=== PATIENT | female | born 1945 | race Caucasian/White ===

== ENCOUNTER 2020-06-05 21:12 | Observation (INO) | payer MEDICARE ==
[~2020-06-05] VITALS: Ht 165.1 cm; Wt 73.3 kg
--- OUTSIDE RECORDS SUMMARY | ~2020-06-05 | XMS | Encounter Summary ---
Demographics + + + | Address | [address] | | | [place] [address] | + + + | Home Phone | | + + + | Preferred Language | Unknown | + + + | Marital Status | | + + + | Christian Affiliation | Unknown | + + + | Race | White | + + + | Ethnic Group | Not or | + + + Author + + + | Author | [facility] | | | and [place] | + + + | Organization | [facility] | | | and [place] | + + + | Address | Unknown | + + + | Phone | Unavailable | + + + Support + + +---------+ + | Name | Relationship | Address | Phone | + + +---------+ + | Sergio Max | ECON | Unknown | | + + +---------+ + Care Team Providers + +------+ + | Care Mechanical Manufacturing Technician Name | Role | Phone | + +------+ + | Laquita Louis MD | PCP | | + +------+ + Reason for Referral Evaluate & Treat (Routine) + + + + + + + | Status | Reason | Specialty | Diagnoses / | Referred By | Referred To | | | | | Procedures | Contact | Contact | + + + + + + + | Authorizatio | Specialty | Cardiology | Diagnoses | [facility]erto | Liya, | | n not | Services | | | Laquita Bush, | MD Mariano | | Required | Required | | Cardiomyopat | [address] | | | | | hy, | [address] | [address] 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 | | | + + + + + + + Evaluate & Treat (Routine) + + + + + + + | Status | Reason | Specialty | Diagnoses / | Referred By | Referred To | | | | | Procedures | Contact | Contact | + + + + + + + | Authorizatio | Specialty | Surgery / | Diagnoses | Heriberto, | [facility], | | n not | Services | General | Generalized | Laquita Bush, | Devon Hernandeze, | | Required | Required | Surgery | abdominal | MD [address] | MD [address] | | | | | pain | [address] | | | | | | | [place], | | | | | | [place], | [place] [address] | | | | | | [place] [address] | Phone: | | | | | | Phone: | [phone] | | | | | | [phone] | Fax: | | | | | | Fax: | [phone] | | | | | | [phone] | | + + + + + + + Evaluate & Treat (Routine) + + + + + + + | Status | Reason | Specialty | Diagnoses / | Referred By | Referred To | | | | | Procedures | Contact | Contact | + + + + + + + | Authorizatio | Specialty | Physical | Diagnoses | [facility]erto, | [facility] | | n not | Services | Therapy | Right hip | Laquita Bush, | PHYSICAL | | Required | Required | | pain | [address] | THERAPY - | | | | | | [address] | [place] [address] | | | | | | | [address] | | | | | | [place], | [place] | | | | | | [place] [address] | [place], | | | | | | Phone: | [place] [address] | | | | | | [phone] | Phone: | | | | | | Fax: | [phone] | | | | | | [phone] | Fax: | | | | | | | [phone] | + + + + + + + Reason for Visit + + + | Reason | Comments | + + + | Establish Care | | + + + Encounter Details +--------+---------+ + + + | Date | Type | Department | Care Team | Description | +--------+---------+ + + + | 05/03/ | Office | [facility] | Laquita Louis | Establishing care | | 2020 | Visit | [facility] | MD [address] | with new doctor, | | | | [place] [facility] | [address] [place], | encounter for | | | | CARE [address] | [place] [address] | (Primary Dx); | | | | [address] [place], [place] | [phone] | Cardiomyopathy, | | | | [address] | | unspecified type | | | | [phone] | | (HCC); Atrial | | | | | | fibrillation, | | | | | | unspecified type | | | | | | (HCC); | | | | | | Gastroesophageal | | | | | | reflux disease, | | | | | | esophagitis presence | | | | | | not specified; | | | | | | Hyperlipidemia, | | | | | | unspecified | | | | | | hyperlipidemia type; | | | | | | Hx of TIA | | | | | | (transient ischemic | | | | | | attack) and stroke; | | | | | | Generalized | | | | | | abdominal pain; | | | | | | Right hip pain; | | | | | | Encounter for | | | | | | screening mammogram | | | | | | for breast cancer | +--------+---------+ + + + Social History + + + +--------+ + | Tobacco Use | Types | Packs/Day | Years | Date | | | | | Used | | + + + +--------+ + | Former Smoker | Cigarettes | 0.14 | 15 | Quit: 02/15/2020 | + + + +--------+ + + +---+---+---+ | Smokeless Tobacco: | | | | | Never Used | | | | + +---+---+---+ + + +---------+ + | Alcohol Use | Drinks/Week | oz/Week | Comments | + + +---------+ + | Not Currently | | | | + + +---------+ + + + + | Sex Assigned at | Date Recorded | | | | + + + | Not on file | | + + + documented as of this encounter Last Filed Vital Signs + + + + + | Vital Sign | Reading | Time Taken | Comments | + + + + + | Blood Pressure | 128/78 | 05/03/2020 10:10 AM | | | | | PDT | | + + + + + | Pulse | 61 | 05/03/2020 10:10 AM | | | | | PDT | | + + + + + | Temperature | 36.6 C (97.8 F) | 05/03/2020 10:10 AM | | | | | PDT | | + + + + + | Respiratory Rate | 20 | 05/03/2020 10:10 AM | | | | | PDT | | + + + + + | Oxygen Saturation | 95% | 05/03/2020 10:10 AM | | | | | PDT | | + + + + + | Inhaled Oxygen | - | - | | | Concentration | | | | + + + + + | Weight | 73.9 kg (163 lb) | 05/03/2020 10:10 AM | | | | | PDT | | + + + + + | Height | 165.1 cm (5' 5") | 05/03/2020 10:10 AM | | | | | PDT | | + + + + + | Body Mass Index | 27.12 | 05/03/2020 10:10 AM | | | | | PDT | | + + + + + documented in this encounter Patient Instructions Patient Instructions Laquita Noriega - 05/03/2020 10:05 AM PDTIt was great to see you today! Medications changed: Increase your Coreg to twice daily. Monitor your blood pressure at chrissy e and let me know if your blood pressure is going too low. I ordered labs for you to have done in the future. Do not eat anything for 12 hours prior to coming in and drink plenty of water prior to your blood draw at 8am. Images ordered: mammogram; call imaging department at the hospital to schedule and we will call you with results when they are available. Referrals placed: Physical therapy with Tristin Bruce and Dr. Dickson for EGD and Cardiology with Dr. Reyes; The referral will be authorized through your insurance and once authorized, their office will call you directly to set up an appointment time. Follow up: as needed. documented in this encounter Progress Notes Laquita Louis MD - 05/03/2020 10:05 AM PDT History: Syl Max is a 75 y.o. female Chief Complaint: Establish Care HPI Patient presents to establish care. She is a retired mental health counselor. Her daughter and grandson live in [place] which is why she and her moved here from [place]. Her daughter is Kerri Sifuentes and her grand son's name is Dario (10yr). Her daughter just bought the [employer]. She is unsure if she wi ll be taking care of grandson. She and her are very happy to be here. Complaints: SOB- Patient reports some SOB since moving here from [place]. Started about one week ago. D enies cough or cp or trouble lying flat. Walking and bending over exacerbate her SOB at time s. She also has had abd pain since her surgery (had laser treatment for ulcers and was told to stay on Protonix--4 years ago). Reports discomfort below the ribs when she bends over. Does not happen often, but often enough that it is concerning to her. She has not noticed pain w orsening in correlation with eating or not eating. Right hip: She reports her right hip will randomly pop out of place. She has been to [facility] in the past and it helps. She hasn't had any falls or injuries. She states it f eels like it is deep in the tissue, no radiation to her groin. Last mammogram: About two months ago Fhx of breast cancer- mother Fhx of colon cancer-none Surgical hx: Tonsillectomy- 1949 Joint replacement- thumbs D&C of uterus- 1996 Breast enhancement surgery- 2008 Breast biopsy- 2008 Ankle surgery Angioplasty- 2016 Ablation, cardiac- 2019 Esophageal laser- unsure what it is called, a few years ago. Family hx: Mother- asthma, breast cancer, HTN Brother- COPD Medical hx: Cardiac ablation: She has not had any heartburn since her ablation about 3-4 years ago. Afib: Patient is taking Xarelto 20mg daily, Coreg 3.125mg daily and Betapace 80mg twice demetrice ly. Cardiomyopathy: Patient is taking Cozaar 25mg daily and Lasix 20mg daily as needed She was taking the Coreg twice daily, but she was decreased to once daily a few months ago and wonde rs if she is in Afib and that is why she is more sob. Denies leg or ankle swelling. Reports she has venous stasis she had checked a few years ago and occasionally wears compression sto ckings. Hyperlipidemia: Patient is taking Lipitor 40mg nightly. States she had a recent fasting lip id about 3 months ago. H/o TIA: Patient is taking a baby ASA. She was a tobacco smoker, but quit many years ago. Patient Active Problem List Diagnosis MVP (mitral valve prolapse) Hyperlipidemia Hx of TIA (transient ischemic attack) and stroke Heart murmur GERD (gastroesophageal reflux disease) Ejection fraction < 50% Cardiomyopathy CAD (coronary artery disease) A-fib Current Outpatient Medications: aspirin 81 mg chewable tablet, Chew and swallow 81 mg Daily., Disp: , Rfl: atorvaSTATin (LIPITOR) 40 mg tablet, Take 40 mg by mouth nightly., Disp: , Rfl: carvedilol (COREG) 3.125 mg tablet, Take 3.125 mg by mouth 2 times daily (with breakfa st & dinner)., Disp: , Rfl: furosemide (LASIX) 20 mg tablet, Take 20 mg by mouth 2 times daily As needed ., Disp: , Rfl: LORazepam (ATIVAN) 0.5 mg tablet, Take 1 tablet by mouth nightly as needed for Anxiety or Insomnia., Disp: 20 tablet, Rfl: 0 pantoprazole (PROTONIX) 40 mg tablet, Take 40 mg by mouth every morning (before breakf ast)., Disp: , Rfl: rivaroxaban (XARELTO) 20 mg tablet, Take 20 mg by mouth Daily (with dinner)., Disp: , Rfl: sotalol (BETAPACE) 80 mg tablet, Take 80 mg by mouth 2 times daily., Disp: , Rfl: valACYclovir (VALTREX) 500 mg tablet, Take 500 mg by mouth 2 times daily., Disp: , Rfl : Review of Systems Constitutional: Negative for chills and fever. HENT: Negative for congestion. Respiratory: Positive for shortness of breath (as per hpi). Negative for cough. Cardiovascular: Negative for chest pain and leg swelling. Gastrointestinal: Positive for abdominal pain (per hpi). Negative for nausea and vomiting. Musculoskeletal: Positive for myalgias (R hip per hpi). Neurological: Negative for dizziness, weakness and light-headedness. Psychiatric/Behavioral: Negative for dysphoric mood. Results for orders placed or performed in visit on 05/01/20 External Lab: Creatinine Result Value Ref Range Creatinine, External 0.7 External Lab: CBC Result Value Ref Range WBC, External 7.1 HGB, External 11.6 HCT, External 35.6 PLT, External 156 RBC, External 3.90 MCV, External 91 External Lab: Sodium Result Value Ref Range Sodium, External 138 External Lab: Potassium Result Value Ref Range Potassium, External 3.9 External Lab: Chloride Result Value Ref Range Chloride, External 106 External Lab: Carbon Dioxide Result Value Ref Range Carbon Dioxide, External 27 External Lab: Calcium Result Value Ref Range Calcium, External 8.6 External Lab: Albumin Result Value Ref Range Albumin, External 2.9 External Lab: AST Result Value Ref Range AST, External 22 External Lab: ALT Result Value Ref Range ALT, External 18 External Lab: Glucose Result Value Ref Range Glucose, External 86 External Lab: BUN Result Value Ref Range BUN, External 16 Physical Examination: BP 128/78 | Pulse 61 | Temp 36.6 C (97.8 F) | Resp 20 | Ht 1.651 m (5' 5") | Wt 73 .9 kg (163 lb) | SpO2 95% | BMI 27.12 kg/m Physical Exam Constitutional: She is oriented to person, place, and time. She appears well-developed and well-nourished. No distress. HENT: Head: Normocephalic and atraumatic. Eyes: Pupils are equal, round, and reactive to light. Conjunctivae are normal. Cardiovascular: Normal rate. Irreg, irreg, rate controlled Pulmonary/Chest: Effort normal and breath sounds normal. No respiratory distress. She has n o wheezes. She has no rales. Abdominal: Soft. Bowel sounds are normal. She exhibits no distension. There is no abdominal tenderness. There is no rebound and no guarding. Musculoskeletal: General: No edema. Neurological: She is alert and oriented to person, place, and time. Skin: Skin is warm and dry. Psychiatric: She has a normal mood and affect. Her behavior is normal. Thought content norm al. Assessment/Plan: 1. Establishing care with new doctor, encounter for - Reviewed medical, surgical, and family history. Reviewed current medications and diagnose s. - Follow up as needed this spring for wellness exam. 2. Cardiomyopathy, unspecified type (HCC) - Continue taking Cozaar 25mg daily and Lasix 20mg daily and will increase Coreg to 3.125mg BID for her Afib as well as Betapace 80mg BID and she will f/u if sob is not improving or w orsening and will get an echo. Will refer her to Dr. Reyes. - Comprehensive Metabolic Panel; Future - CBC no Differential; Future - * [facility] - AMB REFERRAL 3. Atrial fibrillation, unspecified type (HCC) - Continue taking Xarelto 20mg daily and will increase Coreg to 3.125mg BID as well and she will be referred to Dr. Reyes for continuity of care. - * [facility] - AMB REFERRAL 4. Gastroesophageal reflux disease, esophagitis presence not specified - Continue taking Protonix 40mg daily and will refer to Dr. Dickson for repeat EGD due to her abd pain for further recommendations. 5. Hyperlipidemia, unspecified hyperlipidemia type - Continue taking Lipitor 40mg nightly and will plan to repeat fasting labs this spring. - Lipid Profile; Future 6. Hx of TIA (transient ischemic attack) and stroke - Continue taking baby ASA. - Comprehensive Metabolic Panel; Future - CBC no Differential; Future 7. Generalized abdominal pain - Referral to [facility] for EGD. - Ref Surgery- [facility] 8. R hip pain - Referral to Tristin Bruce for deep tissue massage. - Ambulatory referral to Physical Therapy 9. Encounter for screening mammogram for breast cancer - [facility] Tomosynthesis Screening Bilateral; Future The documentation for this encounter was entered by Laquita Noriega, Certified Nail Feeder , and accurately and completely reflects the service(s) I personally performed and the decis ions made by myself, Laquita Louis MD at this date and time of service.Electronically dawson d by Laquita Louis MD at 05/03/2020 11:55 AM PDTdocumented in this encounter Plan of Treatment +--------+ + + + + | Date | Type | Specialty | Care Team | Description | +--------+ + + + + | 06/06/ | Office | Cardiology | Mariano Nickerson, | | 2019 | Visit | | [address] | | | | | | [place], | | | | | | [place] [address] | | | | | | [phone] | | | | | | | | +--------+ + + + + | 06/25/ | Hospital | | Devon Dickson | | | 2019 | Encounter | | MD [address] | | | | | [address] | | | | | | [place], [place] | | | | | | [address] | | | | | | [phone] | | | | | | | | +--------+ + + + + | 06/25/ | Surgery | | Devon Dickson | EGD W/ BIOPSY | | 2019 | | | MD [address] | | | | | | [address] | | | | | | [place], [place] | | | | | | [address] | | | | | | [phone] | | | | | | | | +--------+ + + + + | 07/04/ | Office | General Surgery | Devon Dickson | | | 2019 | Visit | | MD [address] | | | | | | [address] | | | | | | [place], [place] | | | | | | [address] | | | | | | [phone] | | | | | | | | +--------+ + + + + + +---------+--------+ + + | Name | Type | Priori | Associated Diagnoses | Order Schedule | | | | ty | | | + +---------+--------+ + + | Lipid Profile | Lab | Routin | Hyperlipidemia, | 1 Occurrences | | | | e | unspecified | starting 05/03/2020 | | | | | hyperlipidemia type | until 05/03/2021 | + +---------+--------+ + + | Comprehensive | Lab | Routin | Cardiomyopathy, | 1 Occurrences | | Metabolic Panel | | e | unspecified type | starting 05/03/2020 | | | | | (HCC) Hx of TIA | until 05/03/2021 | | | | | (transient ischemic | | | | | | attack) and stroke | | + +---------+--------+ + + | CBC no Differential | Lab | Routin | Cardiomyopathy, | 1 Occurrences | | | | e | unspecified type | starting 05/03/2020 | | | | | (HCC) Hx of TIA | until 05/03/2021 | | | | | (transient ischemic | | | | | | attack) and stroke | | + +---------+--------+ + + | [facility] | Imaging | Routin | Encounter for | Expected: | | Screening Bilateral | | e | screening mammogram | 05/03/2020, Expires: | | | | | for breast cancer | 07/03/2021 | + +---------+--------+ + + + + +--------+ + + | Name | Type | Priori | Associated Diagnoses | Order Schedule | | | | ty | | | + + +--------+ + + | Ambulatory referral | Outpatient | Routin | Right hip pain | Ordered: 05/03/2020 | | to Physical Therapy | Referral | e | | | + + +--------+ + + | Ref Surgery- [facility] | Outpatient | Routin | Generalized | Ordered: 05/03/2020 | | | Referral | e | abdominal pain | | + + +--------+ + + | * [facility] | Outpatient | Routin | Cardiomyopathy, | Ordered: 05/03/2020 | | CARDIOLOGY - AMB | Referral | e | unspecified type | | | REFERRAL | | | (HCC) Atrial | | | | | | fibrillation, | | | | | | unspecified type | | | | | | (HCC) | | + + +--------+ + + documented as of this encounter Visit Diagnoses + + | Diagnosis | + + | Establishing care with new doctor, encounter for - Primary | + + | Cardiomyopathy, unspecified type (HCC) | + + | Atrial fibrillation, unspecified type (HCC) | + + | Gastroesophageal reflux disease, esophagitis presence not specified | + + | Hyperlipidemia, unspecified hyperlipidemia type | + + | Hx of TIA (transient ischemic attack) and stroke Transient ischemic attack (TIA), and | | cerebral infarction without residual deficits | + + | Generalized abdominal pain Abdominal pain, generalized | + + | Right hip pain Pain in joint, pelvic region and thigh | + + | Encounter for screening mammogram for breast cancer | + + | Coronary artery disease, angina presence unspecified, unspecified vessel or lesion | | type, unspecified whether soboba or transplanted heart - Primary | + + | Atrial fibrillation, unspecified type (HCC) | + + | Encounter for loop recorder check | + + | Status post placement of implantable loop recorder | + + documented in this encounter
--- OUTSIDE RECORDS SUMMARY | ~2020-06-05 | XMS | Encounter Summary ---
Demographics + + + | Address | [address] | | | [place] [address] | + + + | Home Phone | | + + + | Preferred Language | Unknown | + + + | Marital Status | | + + + | Jain Affiliation | Unknown | + + + | Race | White | + + + | Ethnic Group | Not or | + + + Author + + + | Author | [facility] | | | and [place] | + + + | Organization | [facility] | | | and [...] Team Providers + +------+ + | Care Philosophy Faculty Name | Role | Phone | + +------+ + | Laquita Louis MD | PCP | | + +------+ + Reason for Visit +--------+ + | Reason | Comments | +--------+ + | Other | LLQ PAIN | +--------+ + Encounter Details +--------+---------+ + + + | Date | Type | Department | Care Team | Description | +--------+---------+ + + + | 05/20/ | Office | [facility] | Devon Dickson | Polyp of colon, | | 2019 | Visit | [facility] | [address] | unspecified part of | | | | [place] [facility] | [address] | colon, unspecified | | | | [facility] [address] | [place], [place] | type (Primary Dx); | | | | [address] [place], [place] | [address] | Kohler's esophagus | | | | [address] | [phone] | without dysplasia | | | | [phone] | | | +--------+---------+ + + + Social History [...] + + + | Blood Pressure | 118/72 | 05/20/2020 9:53 AM | | | | | PDT | | + + + + + | Pulse | 60 | 05/20/2020 9:53 AM | | | | | PDT | | + + + + + | Temperature | 37.3 C (99.2 F) | 05/20/2020 9:53 AM | | | | | PDT | | + + + + + | Respiratory Rate | - | - | | + + + + + | Oxygen Saturation | 97% | 05/20/2020 9:53 AM | | | | | PDT | | + + + + + | Inhaled Oxygen | - | - | | | Concentration | | | | + + + + + | Weight | 72.6 kg (160 lb) | 05/20/2020 9:53 AM | | | | | PDT | | + + + + + | Height | - | - | | + + + + + | Body Mass Index | 26.63 | 05/03/2020 10:10 AM | | | | | PDT | | + + + + + documented in this encounter Progress Notes Devon Dickson MD - 05/20/2020 9:45 AM PDT Subjective: Referring provider: [facility] Consulting provider: Dr. Yessi Streeter Danya Max is a 75 y.o. female with history of having had Kohler's esophagus with laser treatment about 5-6 years ago. She has not had any f/u EGD since then, but has been on Pantoprazole. We need to do a f/u EGD to monitor her Kohler's. She has also had some L UQ pain, possibly related to PUD or colon issues. Her last colonoscopy was about 6 years ago also, with a h/o some polyps, not sure what kind . She denies a family h/o colon cancer. She has had changes in bowel habits with looser st ools then normal. Therefore, a colonoscopy is indicated. She had a Cologuard about a year ago which was negative. Past Medical History: Diagnosis Date A-fib (HCC) Alcoholic (HCC) 2203-8047 CAD (coronary artery disease) 2015 with ptca/stenting Cardiomyopathy (HCC) Ejection fraction < 50% 08/11/2016 37% GERD (gastroesophageal reflux disease) Heart murmur Herpes simplex Genital Hx of TIA (transient ischemic attack) and stroke Hyperlipidemia MVP (mitral valve prolapse) Past Surgical History: Procedure Laterality Date ABLATION 06/14/2019 Cardiac ANGIOPLASTY 08/11/2016 ANKLE SURGERY breast biopsy 2009 BREAST ENHANCEMENT SURGERY 1988 DILATION AND CURETTAGE OF UTERUS 1997 JOINT REPLACEMENT thumbs TONSILLECTOMY 1950 Current Outpatient Medications Medication Sig Dispense Refill aspirin 81 mg chewable tablet Chew and swallow 81 mg Daily. atorvaSTATin (LIPITOR) 40 mg tablet Take 40 mg by mouth nightly. carvedilol (COREG) 3.125 mg tablet Take 3.125 mg by mouth 2 times daily (with breakfast & dinner). furosemide (LASIX) 20 mg tablet Take 20 mg by mouth 2 times daily As needed . LORazepam (ATIVAN) 0.5 mg tablet Take 1 tablet by mouth nightly as needed for Anxiety o r Insomnia. 20 tablet 0 losartan (COZAAR) 25 mg tablet Take 1 tablet by mouth Daily. 30 tablet pantoprazole (PROTONIX) 40 mg tablet Take 40 mg by mouth every morning (before breakfas t). rivaroxaban (XARELTO) 20 mg tablet Take 20 mg by mouth Daily (with dinner). sotalol (BETAPACE) 80 mg tablet Take 80 mg by mouth 2 times daily. valACYclovir (VALTREX) 500 mg tablet Take 500 mg by mouth 2 times daily. No current facility-administered medications for this visit. Allergies Allergen Reactions Lisinopril Shortness Of Breath Brilinta [Ticagrelor] Unknown Social History Socioeconomic History Marital status: Spouse name: Not on file Number of children: Not on file Years of education: Not on file Highest education level: Not on file Occupational History Not on file Social Needs Financial resource strain: Not on file Food insecurity Worry: Not on file Inability: Not on file Transportation needs Medical: Not on file Non-medical: Not on file Tobacco Use Smoking status: Former Smoker Packs/day: 0.14 Years: 15.00 Pack years: 2.10 Types: Cigarettes Quit date: 02/15/2020 Years since quittin.2 Smokeless tobacco: Never Used Substance and Sexual Activity Alcohol use: Not Currently Drug use: Never Sexual activity: Yes Lifestyle Physical activity Days per week: Not on file Minutes per session: Not on file Stress: Not on file Relationships Social connections Talks on phone: Not on file Gets together: Not on file Attends restorationist service: Not on file Active member of club or organization: Not on file Attends meetings of clubs or organizations: Not on file Relationship status: Not on file Intimate partner violence Fear of current or ex partner: Not on file Emotionally abused: Not on file Physically abused: Not on file Forced sexual activity: Not on file Other Topics Concern Not on file Social History Narrative Not on file Family History Problem Relation Age of Onset Asthma Mother Breast cancer Mother Hypertension Mother COPD Brother Review of Systems: Review of Systems Change in bowel habits, h/o LUQ pain, otherwise, The 10 point ROS completed and noncontribu tory other than listed in pertinent history. Objective: BP 118/72 | Pulse 60 | Temp 37.3 C (99.2 F) (Oral) | Wt 72.6 kg (160 lb) | SpO2 97% | BMI 26.63 kg/m Constitutional: Alert and oriented and appropriate in no acute distress Pupils: Equal and round with no icterus Neck: Supple with no carotid bruits or lymphadenopathy or thyroid enlargement Pulmonary/Chest: Clear bilateral with no wheezing Cardiovascular: Regular rate and rhythm with no murmurs Abdominal: Nonobese abdomen with no tenderness, or masses or hernias Extremities: No edema or ischemic changes. Diagnostic Data: Laboratory studies were personally reviewed by me. Chemistry: No results for input(s): NA, K, CHLORIDE, CO2, BUN, CREA, GLU, BILITOT, AST, ALT , ALKPHOS in the last 72 hours. Hematology:No results for input(s): HGB, HCT, WBC, PLT, NEUPCT in the last 72 hours. Assessment: H/o Kohler's, s/p laser treatment and needs f/u EGD. Also, h/o colon polyps with the last colonoscopy 6 years ago, and positive changes in bowel habits. Plan: For an EGD and colonoscopy. Pt. To stop Xarelto 24 hours before the procedure. Electronically Signed by: Devon Dickson MD, 05/20/2020 10:09 AM PDT Portions of this chart may have been created with [employer] voice recognition software. Occasi onal wrong-word or sound-alike substitutions may have occurred due to the inherent moe itations of voice recognition software. Please read the chart carefully and recognize, using context, where these substitutions have occurred. documented in this encounter Plan of Treatment +--------+ + + + + | Date | Type | Specialty | Care Team | Description | +--------+ + + + + | 06/06/ | Office | Cardiology | Mariano Nickerson, | | | 2019 | Visit | | MD [address] | | | | | | [place], | | | | | | [place] [address] | | | | | | [phone] | | | | | | | | +--------+ + + + + | 06/25/ | Hospital | | Devon iDckson | | | 2019 | Encounter | | [address] | | | | | | [address] | | | | | | [place], [place] | | | | | | [address] | | | | | | [phone] | | | | | | | | +--------+ + + + + | 06/25/ | Surgery | | Devon Dickson | EGD W/ BIOPSY | | 2019 | | | [address] | | | | | | [address] | | | | | | [place], [place] | | | | | | [address] | | | | | | [phone] | | | | | | | | +--------+ + + + + | 07/04/ | Office | General Surgery | Devon Dickson | | | 2019 | Visit | | [address] | | | | | | [address] | | | | | | [place], [place] | | | | | | [address] | | | | | | [phone] | | | | | | | | +--------+ + + + + documented as of this encounter Visit Diagnoses + + | Diagnosis | + + | Polyp of colon, unspecified part of colon, unspecified type - Primary | + + | Kohler's esophagus without dysplasia Kohler's esophagus | + + | Coronary artery disease, angina presence unspecified, unspecified vessel or lesion | | type, unspecified whether [place] or transplanted heart - Primary | + + | Atrial fibrillation, unspecified type (HCC) | + + | Encounter for loop recorder check | + + | Status post placement of implantable loop recorder | + + documented in this encounter"
--- OUTSIDE RECORDS SUMMARY | ~2020-06-05 | XMS | Encounter Summary ---
Demographics + + + | Address | [address] | | | [place] [address] | + + + | Home Phone | | + + + | Preferred Language | Unknown | + + + | Marital Status | | + + + | Denominational Affiliation | Unknown | + + + | Race | White | + + + | Ethnic Group | Not or | + + + Author + + + | Author | [facility] | | | and [place] | + + + | Organization | [facility] | | | and [...] Team Providers + +------+ + | Care Skip Hoist Operator Name | Role | Phone | + +------+ + PCP | Unavailable | + +------+ + Encounter Details +--------+ + + + + | Date | Type | Department | Care Team | Description | +--------+ + + + + | 05/01/ | Abstract | [facility] | Laquita Louis | | | 2020 | | [facility] | [address] | | | | | [place] [facility] | [address] [place] | | | | | [address] | [place] [address] | | | | | [address] [place], [place] | [phone] | | | | | [address] | | | | | | [phone] | | | +--------+ + + + + Social History + + [...] + + documented as of this encounter Plan of Treatment +--------+ + + + + | Date | Type | Specialty | Care Team | Description | +--------+ + + + + | 06/06/ | Office | Cardiology | Mariano Nickerson, | | | 2019 | Visit | | [address] | | | | | | [place], | | | | | | [place] [address] | | | | | | [phone] | | | | | | | | +--------+ + + + + | 06/25/ | Hospital | | Devon Dickson | | | 2019 | Encounter | | [address] | | | | | [address] | | | | | | [place], [place] | | | | | | [address] | | | | | | [phone] | | | | | | | | +--------+ + + + + | 06/25/ | Surgery | | Devon Dickson | EGD W/ BIOPSY | | 2019 | | | [address] | | | | | | [address] | | | | | | [place], [place] | | | | | | [address] | | | | | | [phone] | | | | | | | | +--------+ + + + + | 07/04/ | Office | General Surgery | Devon Dickson | | | 2019 | Visit | | [address] | | | | | [address] | | | | | | [place], [place] | | | | | | [address] | | | | | | [phone] | | | | | | | | +--------+ + + + + documented as of this encounter Procedures + +--------+ + + + | Procedure Name | Priori | Date/Time | Associated Diagnosis | Comments | | | ty | | | | + +--------+ + + + | EXTERNAL LAB: BUN | Routin | 06/15/2019 | | Results for this | | | e | | | procedure are in the | | | | | | results section. | + +--------+ + + + | EXTERNAL LAB: | Routin | 06/15/2019 | | Results for this | | GLUCOSE | e | | | procedure are in the | | | | | | results section. | + +--------+ + + + | EXTERNAL LAB: ALT | Routin | 06/15/2019 | | Results for this | | | e | | | procedure are in the | | | | | | results section. | + +--------+ + + + | EXTERNAL LAB: AST | Routin | 06/15/2019 | | Results for this | | | e | | | procedure are in the | | | | | | results section. | + +--------+ + + + | EXTERNAL LAB: | Routin | 06/15/2019 | | Results for this | | ALBUMIN | e | | | procedure are in the | | | | | | results section. | + +--------+ + + + | EXTERNAL LAB: | Routin | 06/15/2019 | | Results for this | | CALCIUM | e | | | procedure are in the | | | | | | results section. | + +--------+ + + + | EXTERNAL LAB: CARBON | Routin | 06/15/2019 | | Results for this | | DIOXIDE | e | | | procedure are in the | | | | | | results section. | + +--------+ + + + | EXTERNAL LAB: | Routin | 06/15/2019 | | Results for this | | CHLORIDE | e | | | procedure are in the | | | | | | results section. | + +--------+ + + + | EXTERNAL LAB: | Routin | 06/15/2019 | | Results for this | | POTASSIUM | e | | | procedure are in the | | | | | | results section. | + +--------+ + + + | EXTERNAL LAB: SODIUM | Routin | 06/15/2019 | | Results for this | | | e | | | procedure are in the | | | | | | results section. | + +--------+ + + + | EXTERNAL LAB: CBC | Routin | 06/15/2019 | | Results for this | | | e | | | procedure are in the | | | | | | results section. | + +--------+ + + + | EXTERNAL LAB: | Routin | 06/15/2019 | | Results for this | | CREATININE | e | | | procedure are in the | | | | | | results section. | + +--------+ + + + documented in this encounter Results External Lab: IVETTE (06/15/2019) + +-------+ + + + | Component | Value | Ref Range | Performed | Pathologist | | | | | At | Signature | + +-------+ + + + | BUN, | 16 | | | | | External | | | | | + +-------+ + + + External Lab: Glucose (06/15/2019) + +-------+ + + + | Component | Value | Ref Range | Performed | Pathologist | | | | | At | Signature | + +-------+ + + + | Glucose, | 86 | | | | | External | | | | | + +-------+ + + + External Lab: ALT (06/15/2019) + +-------+ + + + | Component | Value | Ref Range | Performed | Pathologist | | | | | At | Signature | + +-------+ + + + | ALT, | 18 | | | | | External | | | | | + +-------+ + + + External Lab: AST (06/15/2019) + +-------+ + + + | Component | Value | Ref Range | Performed | Pathologist | | | | | At | Signature | + +-------+ + + + | AST, | 22 | | | | | External | | | | | + +-------+ + + + External Lab: Albumin (06/15/2019) + +-------+ + + + | Component | Value | Ref Range | Performed | Pathologist | | | | | At | Signature | + +-------+ + + + | Albumin, | 2.9 | | | | | External | | | | | + +-------+ + + + External Lab: Calcium (06/15/2019) + +-------+ + + + | Component | Value | Ref Range | Performed | Pathologist | | | | | At | Signature | + +-------+ + + + | Calcium, | 8.6 | | | | | External | | | | | + +-------+ + + + External Lab: Carbon Dioxide (06/15/2019) + +-------+ + + + | Component | Value | Ref Range | Performed | Pathologist | | | | | At | Signature | + +-------+ + + + | Carbon | 27 | | | | | Dioxide, | | | | | | External | | | | | + +-------+ + + + External Lab: Chloride (06/15/2019) + +-------+ + + + | Component | Value | Ref Range | Performed | Pathologist | | | | | At | Signature | + +-------+ + + + | Chloride, | 106 | | | | | External | | | | | + +-------+ + + + External Lab: Potassium (06/15/2019) + +-------+ + + + | Component | Value | Ref Range | Performed | Pathologist | | | | | At | Signature | + +-------+ + + + | Potassium, | 3.9 | | | | | External | | | | | + +-------+ + + + External Lab: Sodium (06/15/2019) + +-------+ + + + | Component | Value | Ref Range | Performed | Pathologist | | | | | At | Signature | + +-------+ + + + | Sodium, | 138 | | | | | External | | | | | + +-------+ + + + External Lab: CBC (06/15/2019) + +-------+ + + + | Component | Value | Ref Range | Performed | Pathologist | | | | | At | Signature | + +-------+ + + + | WBC, | 7.1 | | | | | External | | | | | + +-------+ + + + | HGB, | 11.6 | | | | | External | | | | | + +-------+ + + + | HCT, | 35.6 | | | | | External | | | | | + +-------+ + + + | PLT, | 156 | | | | | External | | | | | + +-------+ + + + | RBC, | 3.90 | | | | | External | | | | | + +-------+ + + + | MCV, | 91 | | | | | External | | | | | + +-------+ + + + External Lab: Creatinine (06/15/2019) + +-------+ + + + | Component | Value | Ref Range | Performed | Pathologist | | | | | At | Signature | + +-------+ + + + | Creatinine, | 0.7 | | | | | External | | | | | + +-------+ + + + + + | Specimen | + + | Blood | + + documented in this encounter Visit Diagnoses Not on filedocumented in this encounter"
--- OUTSIDE RECORDS SUMMARY | ~2020-06-05 | XMS | Clinical Summary ---
Demographics + + + | Address | [address] | | | [place] [address] | + + + | Home Phone | | + + + | Preferred Language | Unknown | + + + | Marital Status | | + + + | Yazidi Affiliation | Unknown | + + + | Race | White | + + + | Ethnic Group | Not or | + + + Author + + + | Author | [facility] | | | and [place] | + + + | Organization | [facility] | | | and [...] Team Providers + +------+ + | Care Cake Press Operator Name | Role | Phone | + +------+ + | Laquita Louis MD | PCP | | + +------+ + Allergies + + + + + + | Active Allergy | Reactions | Severity | Noted | Comments | | | | | Date | | + + + + + + | Ticagrelor | Unknown | | 04/30/20 | | | | | | 20 | | + + + + + + | Lisinopril | Shortness Of Breath | High | 04/30/20 | | | | | | 20 | | + + + + + + Medications + + + +---------+------+------+-------+ | Medication | Sig | Dispensed | Refills | Star | End | Statu | | | | | | t | Date | s | | | | | | Date | | | + + + +---------+------+------+-------+ | rivaroxaban | Take 20 mg by mouth | | 0 | | | Activ | | (XARELTO) 20 mg | Daily (with dinner). | | | | | e | | tablet | | | | | | | + + + +---------+------+------+-------+ | pantoprazole | Take 40 mg by mouth | | 0 | | | Activ | | (PROTONIX) 40 mg | every morning | | | | | e | | tablet | (before breakfast). | | | | | | + + + +---------+------+------+-------+ | sotalol (BETAPACE) | Take 80 mg by mouth | | 0 | | | Activ | | 80 mg tablet | 2 times daily. | | | | | e | + + + +---------+------+------+-------+ | carvedilol (COREG) | Take 3.125 mg by | | 0 | | | Activ | | 3.125 mg tablet | mouth 2 times daily | | | | | e | | | (with breakfast & | | | | | | | | dinner). | | | | | | + + + +---------+------+------+-------+ | atorvaSTATin | Take 40 mg by mouth | | 0 | | | Activ | | (LIPITOR) 40 mg | nightly. | | | | | e | | tablet | | | | | | | + + + +---------+------+------+-------+ | valACYclovir | Take 500 mg by mouth | | 0 | | | Activ | | (VALTREX) 500 mg | 2 times daily. | | | | | e | | tablet | | | | | | | + + + +---------+------+------+-------+ | aspirin 81 mg | Chew and swallow 81 | | 0 | | | Activ | | chewable tablet | mg Daily. | | | | | e | + + + +---------+------+------+-------+ | furosemide (LASIX) | Take 20 mg by mouth | | 0 | | | Activ | | 20 mg tablet | 2 times daily As | | | | | e | | | needed . | | | | | | + + + +---------+------+------+-------+ | LORazepam (ATIVAN) | Take 1 tablet by | 20 | 0 | 08/1 | | Activ | | 0.5 mg tablet | mouth nightly as | tablet | | 4/20 | | e | | | needed for Anxiety | | | 20 | | | | | or Insomnia. | | | | | | + + + +---------+------+------+-------+ | losartan (COZAAR) | Take 1 tablet by | 30 | 0 | 08/ | | Activ | | 25 mg tablet | mouth Daily. | tablet | | 01/07 | | e | | | | | | 20 | | | + + + +---------+------+------+-------+ Active Problems + + + | Problem | Noted Date | + + + | Encounter for loop recorder check | 06/05/2020 | + + + | Status post placement of implantable loop recorder | 06/05/2020 | + + + + + | Overview: Indication: | + + + + + | Ejection fraction < 50% | 08/11/2016 | + + + + + | Overview: 37% | + + + + + | CAD (coronary artery disease) | 09/20/2015 | + + + + + | Overview: with ptca/stenting | + + + +---+ | MVP (mitral valve prolapse) | | + +---+ | Hyperlipidemia | | + +---+ | Hx of TIA (transient ischemic attack) and stroke | | + +---+ | Heart murmur | | + +---+ | GERD (gastroesophageal reflux disease) | | + +---+ | Cardiomyopathy | | + +---+ | A-fib | | + +---+ + + | Overview: S/P atrial fibrillation ablation and loop recorder | | implantation 06/14/2019 | + + Encounters +--------+ + + + + | Date | Type | Specialty | Care Team | Description | +--------+ + + + + | 05/20/ | Office | General Surgery | Devon Dickson | Polyp of colon, | | 2019 | Visit | | [facility] | unspecified part of | | | | | | colon, unspecified | | | | | | type (Primary Dx); | | | | | | 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 | +--------+ + + + + | 05/03/ | Office | Primary Care | Laquita Louis | Establishing care | | 2019 | Visit | | [facility] | with new doctor, | | | | | | encounter for | | | | | | (Primary Dx); | | | | | | Cardiomyopathy, | | | | | | unspecified type | | | | | | (HCC); Atrial | | | [...] | | | for breast cancer | +--------+ + + + + | 05/01/ | Abstract | Primary Care | Laquita Louis | | | 2020 | | | [facility] | | +--------+ + + + + from Last 3 Months Family History + + +------+ + | Medical History | Relation | Name | Comments | + + +------+ + | COPD | Brother | | | + + +------+ + | Asthma | Mother | | | + + +------+ + | Breast cancer | Mother | | | + + +------+ + | Hypertension | Mother | | | + + +------+ + + +------+--------+ + | Relation | Name | Status | Comments | + +------+--------+ + | Brother | | | | + +------+--------+ + | Mother | | | | + +------+--------+ + Social History + + + +--------+ [...] on file | | + + + Last Filed Vital Signs + + + [...] | | + + + + + Plan of Treatment +--------+ + + + + | Date | Type | Specialty | Care Team | Description | +--------+ + + + + | 06/06/ | Office | Cardiology | Mariano Nickerson, | | | 2019 | Visit | | MD Eleazar Mueller | | | | | | [place], | | | | | | [place] [address] | | | | | | [phone] | | | | | | | | +--------+ + + + + | 06/25/ | Hospital | | Devon Dickson | | | 2019 | Encounter | | [facility] [address] | | | | | | [place], [place] | | | | | | [address] | | | | | | [phone] | | | | | | | | +--------+ + + + + | 06/25/ | Surgery | | Devon Dickson | EGD W/ BIOPSY | | 2019 | | | MD [facility] | [address] | | | | | | [place], [place] | | | | | | [address] | | | | | | [phone] | | | | | | | | +--------+ + + + + | 07/04/ | Office | General Surgery | Devon Dickson | | | 2019 | Visit | | MD [facility] | [address] | | | [address] | | | | | | [place], [place] | | | | | | [address] | | | | | | [phone] | | | | | | | | +--------+ + + + + + + + + + | Health Maintenance | Due Date | Last | Comments | | | | Done | | + + + + + | Hepatitis C | | | | | Screening | 3 | | | + + + + + | Med Mgmt: ECG | | | | | | 3 | | | + + + + + | Medication | | | | | Management | 3 | | | + + + + + | Vaccine: | | | | | Dtap/Tdap/Td (1 - | 2 | | | | Tdap) | | | | + + + + + | Vaccine: Zoster (1 | | | | | of 2) | 3 | | | + + + + + | Breast Cancer | | | | | Screening | 8 | | | + + + + + | Vaccine: | | | | | Pneumococcal 65+ (1 | 8 | | | | of 1 - PPSV23) | | | | + + + + + | Adult Annual | | | | | Wellness Visit | 0 | | | + + + + + | Vaccine: Influenza | | | | | (#1) | 0 | | | + + + + + | Med Mgmt: Cr | | 06/15/20 | | | | 0 | 19 | | + + + + + | Med Mgmt: HCT | | 06/15/20 | | | | 0 | 19 | | + + + + + | Med Mgmt: HGB | | 06/15/20 | | | | 0 | 19 | | + + + + + | Med Mgmt: K | | 06/15/20 | | | | 0 | 19 | | + + + + + | Med Mgmt: Na | | 06/15/20 | | | | 0 | 19 | | + + + + + Results Not on filefrom Last 3 Months Insurance + +--------+ +--------+ +---------+--------+ | Payer | Benefi | Subscriber | Effect | Phone | Address | Type | | | t Plan | ID | jorge l | | | | | | / | | Dates | | | | | | Group | | | | | | + +--------+ +--------+ +---------+--------+ | MEDICARE | MEDICA | [id number] | 01/19/20 | [phone] | | Medica | | | RE | | 08-Pre | 5 | | re | | | PART A | | sent | | | | | | AND B | | | | | | + +--------+ +--------+ +---------+--------+ | MEDICARE | MEDICA | [id number] | 01/19/20 | [phone] | | Medica | | | RE | | 08-Pre | 5 | | re | | | PART A | | sent | | | | | | AND B | | | | | | + +--------+ +--------+ +---------+--------+ | AARP | AARP | [id number] | 09/20/19 | [phone] | | Indemn | | | MDCR | | 20-Pre | 0 | | ity | | | SUPPL | | sent | | | | + +--------+ +--------+ +---------+--------+ | AARP | AARP | [id number] | 09/20/19 | [phone] | | Indemn | | | MDCR | | 20-Pre | 0 | | ity | | | SUPPL | | sent | | | | + +--------+ +--------+ +---------+--------+ + +--------+ +--------+ + + | Guarantor Name | Accoun | Relation to | Date | Phone | Billing Address | | | t Type | Patient | of | | | | | | | | | | + +--------+ +--------+ + + | Syl Max | Person | Self [birth year] | [address] | | | al/Fam | | 1945 | [phone] | [place] [address] | | | sanjuana | | | 6 (Home) | | + +--------+ +--------+ + + | Syl Max Danya | Person | Self [birth year] | [address] | | | al/Fam | | 1945 | [phone] | [place] [address] | | | sanjuana | | | 6 (Home) | | + +--------+ +--------+ + + | Syl Max | Person | Self | [birth year] | [address] | | | al/Fam | | 1945 | [phone] | [place] [address] | | | sanjuana | | | 6 (Home) | | + +--------+ +--------+ + + Advance Directives + + + + + | Type | Date Recorded | Patient | Explanation | | | | Director Of Maternity Services | | + + + + + | Power of | | | | | Saw Sharpener | | | | + + + + + | Advance | | | | | Directive | | | | + + + + +
[2020-06-05] MEDS ORDERED: ATIVAN0.5 MG PO (22:29)
[2020-06-05] MEDS ORDERED: XARELTO20 MG PO (22:30)
[2020-06-05] MEDS ORDERED: ADULT ASPIRIN R81 MG PO (22:31)
[2020-06-05] MEDS ORDERED: SOTALOL80 M1 PO (22:31)
[2020-06-05] MEDS ORDERED: PANTOPRAZOLE SO40 MG PO (22:32)
[2020-06-05] MEDS ORDERED: LIPITOR40 MG PO (22:32)
[2020-06-05] MEDS ORDERED: COZAAR25 MG PO (22:33)
[2020-06-05] MEDS ORDERED: COREG3.125 MG PO (22:33)
--- NOTE | 2020-06-06 04:00 | NUR ---
PT ARRIVED TO ROOM 126 VIA STRETCHER AT 0300. PT ABLE TO AMBULATE TO BATHROOM AND TO BED. STEADY ON FEET, DENIES DIZZINESS AND SOB. ALERT/ORIENTED, DENIES PAIN BUT STATES SHE FEELS MILD "PINCHING" SENSATION NEAR IMPLANTED LIBRARIAN. LUNGS CLEAR, SLIGHTLY DIM IN BASES, RA. HR REGULAR AT THIS TIME, OCCASIONAL PVC'S NOTED ON MONITOR. BOWEL TONES ACTIVE, DENIES NAUSEA. PT VOIDED WITHOUT ISSUE, DILUTE YELLOW URINE. IV SITE PATENT AND INTACT, FLUIDS INFUSING WNL. SKIN APPEARS GROSSLY INTACT, NO EDEMA NOTED, STRONG PERIPHERAL PULSES. PT REQUESTED PRN ATIVAN TO HELP HER SLEEP. ICE WATER, VEGETABLE BROTH, AND WARM BLANKET PROVIDED PER PT REQUEST. CALL LIGHT AND BELONGINGS WITHIN REACH. DENIES FURTHER REQUESTS AT THIS TIME. DR. MCKINLEY IN TO SEE PT.
--- NOTE | 2020-06-06 06:00 | NUR ---
PT CONTINUES TO DENY COMPLAINTS OR REQUESTS AT THIS TIME. VITAL SIGNS STABLE. CALL LIGHT AND BELONGINGS WITHIN REACH.
--- NOTE | 2020-06-06 08:20 | NUR ---
pt is awake and alert x4. pt denies pain, nausea, sob, and chest pain. pt is sitting up in bed watching tv and drinking coffee. pt has call light within reach. iv site is intact, fluids infuse easily, pt denies pain at the site.
--- NOTE | 2020-06-06 09:35 | NUR ---
PATIENT BEING SEEN BY PHYSICIAN. STATES STATES SHE WILL BE TRANSFERRED TO HIGHER LEVEL OF CARE. ASSESSMENT HELD AT THIS TIME.
--- NOTE | 2020-06-06 11:04 | NUR ---
PT ASSISTED WITH CORD MANAGEMENT WHILE UP TO AMBULATE TO THE BATHROOM. PT IS STEADY ON HER FEET AND ALEJANDRA ACTIVITY WELL. PT'S SPOUSE VIVIANA IS AT THE BEDSIDE.
[2020-06-06] MEDS ORDERED: LASIX20 MG PO (12:17)
[2020-06-06] MEDS ORDERED: ACYCLOVIR400 MG PO (12:18)
--- NOTE | 2020-06-06 12:18 | NUR ---
MED REC COMPLETE
--- NOTE | 2020-06-06 12:23 | NUR ---
PT UPDATED ON BED STATUS AT [facility] IN [place]. ALL QUESTIONS ANSWERED, PT PROVIDED WITH UNIT CONTACT INFO AND ACCEPTING PHYSICIANS NAME. PT VERBALIZES UNDERSTANDING OF PLAN TO TRANSFER.
--- NOTE | 2020-06-06 13:33 | EKG ---
[facility] [address] [place], [place] [address] Signed Atrial fibrillation with rapid ventricular response with premature ventricular or aberrantly conducted complexes ST \T\ T wave abnormality, consider inferior ischemia Abnormal ECG No previous ECGs available Confirmed by ZAKI MCKINLEY DO ([id number]) on 06/06/2020 1:33:39 PM Electronically Signed By: ZAKI MCKINLEY DO 06/06/20 1333 PATIENT NAME: KYUNG SALTERA Electrocardiogram DATE OF : 41 PHYSICIAN: ZAKI MCKINLEY DO REPORT #: [id number] REPORT IS CONFIDENTIAL AND NOT TO BE RELEASED WITHOUT AUTHORIZATION
--- NOTE | 2020-06-06 13:48 | NUR ---
[facility] DEPART[facility] TRANSFER TEAM ARIVED TO UNIT. FULL REPORT GIVEN TO TEAM, ALL QUESTIONS ANSWERED. PT AND ALL PERSONAL BELONGINGS COLLECTED IN PREP FOR TRANSPORT TO [facility].
--- NOTE | 2020-06-06 13:56 | NUR ---
FULL REPORT CALLED TO PUNEET NICOLE AT [facility] AT [phone]. ALL QUESTIONS ANSWERED.
--- NOTE | 2020-06-07 15:46 | PATH ---
[facility] [address] [place], [place] [address] Signed ORDERING PHYSICIAN: Jae Patel MD PATIENT NAME: EVELINA SALTER GENDER: F : 1945 SPECIMEN(S): No Source Given MOLECULAR PATHOLOGY RESULTS: SARS-CoV-2 Not Detected ADDITIONAL NOTES.: Positive results are indicative of the presence of SARS-CoV-2 RNA. The test will detect both and live SARS-CoV-2. Positive results do not rule out bacterial infection or co-infection with other viruses. Negative results do not rule-out SARS-CoV-2 infection and should not be used as the sole basis for patient management decisions. Negative results must be combined with other clinical observations, patient history, and epidemiological information. Inconclusive results indicate the minimum number of SARS-CoV-2 molecular targets required to reliably interpret the test was not met. Invalid results are possibly due to inhibiting or interfering substances in the collected sample. In both scenarios, please recollect if clinically indicated. The RFIDeasPath COVID-19 combo test kit is a real-time PCR assay authorized to aid in the diagnosis of SARS-CoV2 infection. The test has not been validated for screening asymptomatic individuals. The test has not been FDA approved; it has been authorized by the FDA under an Emergency Use Authorization (EUA). This test is only authorized for the duration of the declaration that circumstances exist justifying the authorization of emergency use of in vitro diagnostic tests for detection and/or diagnosis of COVID-19 under Section 564(b)(1) of the Act, 21 U.S. C. 360bbb-3(b)(1), unless the authorization is terminated or revoked sooner. PERFORMING LABORATORY.: [facility], [address] [place] [id number] (Gum Machine Filler: Brenda Arzate MD, PhD.; CLIA#: [id number]).1 PATIENT NAME: EVELINA SALTER PATHOLOGY DATE OF : 41 REPORT #: [id number] PHYSICIAN: [facility] PCP: NO PRIMARY CARE PHYSICIAN REPORT IS CONFIDENTIAL AND NOT TO BE RELEASED WITHOUT AUTHORIZATION [address] [place] [address] Signed Diagnostician: TOM Molecular Pathologist Electronically Signed 06/07/2020 Copies: ~ PATIENT NAME: EVELINA SALTER PATHOLOGY DATE OF : 41 REPORT #: [id number] PHYSICIAN: [facility] PCP: NO PRIMARY CARE PHYSICIAN REPORT IS CONFIDENTIAL AND NOT TO BE RELEASED WITHOUT AUTHORIZATION
== END 2020-06-06 13:50 | disposition short-term general hospital (02) ==
LOC: ED 21:12 → CCU 21:13
PROVIDERS: ADMIT Student in an Organized Health Care Education/Training Program; ATTEND Student in an Organized Health Care Education/Training Program
DX: R04.2 Hemoptysis (principal); I48.0 Paroxysmal atrial fibrillation; I10 Essential (primary) hypertension; E78.5 Hyperlipidemia, unspecified; K21.9 Gastro-esophageal reflux disease without esophagitis; Z88.8 Allergy status to other drugs, medicaments and biological substances; Z79.899 Other long term (current) drug therapy; Z79.82 Long term (current) use of aspirin; Z86.73 Personal history of transient ischemic attack (TIA), and cerebral infarction without residual deficits; Z20.828 Contact with and (suspected) exposure to other viral communicable diseases
CPT/HCPCS: 36415; 71045; 71260; 80048; 80053; 83735; 83880; 84484; 85018; 85025; 85379; 85610; 86850; 86900; 86901; 93005; 93010; 96361; 96376; 99285-25; C9113; C9803; G0378; J7030; J7121; Q9967